=== PATIENT | male | born 2000 | race African-American/Black ===

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

== ENCOUNTER 2021-03-11 08:15 | Emergency (ER) | payer SELFPAY ==
--- NOTE | 2021-03-11 08:50 | EDM.PDOC ---
ED HPI GENERAL MEDICAL PROBLEM - General Chief Complaint: ENT Problem Stated Complaint: SORE THROAT AND FATIGUED Time Seen by Provider: 03/11/21 08:40 Source of Information: Reports: Patient, Old Records, RN History Limitations: Reports: No Limitations - History of Present Illness INITIAL COMMENTS - FREE TEXT/NARRATIVE: 20 yo male presents with a couple day duration of sore throat and cough. No fever. Does have some clear rhinorrhea. Cough is occasionally productive. No SOB. Onset: Gradual Onset Date: 03/09/21 Duration: Day(s): (2), Constant Location: Reports: Neck (throat), Chest Quality: Reports: Other (unsure) Severity: Moderate Improves with: Reports: Medication Worsens with: Reports: Other (cough, swallowing) Context: Reports: Other (See HPI) Associated Symptoms: Reports: Cough. Denies: Fever/Chills, Shortness of Breath Treatments AREA DEVELOPMENT CONSULTANT: Reports: Other (see below) (none) Throat Pain Score (Numeric/FACES): 7 - Related Data Allergies Allergy/AdvReac Type Severity Reaction Status Date / Time No Known Allergies Allergy Verified 03/11/21 08:37 Home Meds: Home Meds NK [No Known Home Meds] 03/11/21 [History] Social & Family History - Tobacco Use Tobacco Use Status *Q: Never Tobacco User - Caffeine Use Caffeine Use: Reports: None - Recreational Drug Use Recreational Drug Use: No ED ROS ENT - Review of Systems Review Of Systems: See Below Constitutional: Reports: Malaise. Denies: Fever, Chills HEENT: Reports: Rhinitis, Throat Pain Respiratory: Reports: Cough, Sputum (minimal). Denies: Shortness of Breath, Wheezing, Hemoptysis Cardiovascular: Reports: No Symptoms GI/Abdominal: Reports: No Symptoms : Reports: No Symptoms Musculoskeletal: Reports: No Symptoms Skin: Reports: No Symptoms Neurological: Reports: No Symptoms Psychiatric: Reports: No Symptoms ED EXAM, ENT - Physical Exam Exam: See Below Exam Limited By: No Limitations General Appearance: Alert, WD/WN, No Apparent Distress Eye Exam: Bilateral Eye: Normal Inspection Ears: Normal External Exam, Normal Canal, Hearing Grossly Normal, Normal TMs Nose: Normal Inspection, No Blood Mouth/Throat: Normal Inspection, Normal Lips, Normal Oropharynx Head: Atraumatic, Normocephalic Neck: Normal Inspection Respiratory/Chest: No Respiratory Distress, Lungs Clear, Normal Breath Sounds, No Accessory Muscle Use Cardiovascular: Regular Rate, Rhythm, No Edema Extremities: Normal Inspection Neurological: Alert, Oriented, CN II-XII Intact, Normal Cognition, No Motor/Sensory Deficits Psychiatric: Normal Affect, Normal Mood Skin: Warm, Dry, Intact, Normal Color, No Rash Course - Vital Signs Last Recorded V/S: Last Vital Signs Temp 36.7 C 03/11/21 09:14 Pulse 72 03/11/21 09:14 Resp 14 03/11/21 09:14 BP 130/91 H 03/11/21 09:14 Pulse Ox 98 03/11/21 09:14 - Orders/Labs/Meds Labs: Laboratory Tests 03/11/21 03/11/21 Range/Units 08:55 09:12 WBC 5.3 (4.5-11.0) K/uL RBC 6.13 H (4.30-5.90) M/uL Hgb 16.1 H (12.0-15.0) g/dL Hct 48.1 (40.0-54.0) % MCV 79 L (80-98) fL MCH 26 L (27-31) pg MCHC 34 (32-36) % Plt Count 180 (150-400) K/uL Neut % (Auto) 57.0 (36-66) % Lymph % (Auto) 21.0 L (24-44) % Evans % (Auto) 18.6 H (2-6) % Eos % (Auto) 3.2 (2-4) % Baso % (Auto) 0.2 (0-1) % SARS CoV-2 RNA Rapid PATSY Negative Departure - Departure Time of Disposition: 09:15 Disposition: Home, Self-Care 01 Condition: Fair Clinical Impression: Viral upper respiratory illness - Discharge Information *PRESCRIPTION DRUG MONITORING PROGRAM REVIEWED*: Not Applicable *COPY OF PRESCRIPTION DRUG MONITORING REPORT IN PATIENT EDUARDO: Not Applicable Referrals: PCP,Unknown [Primary Care Provider] - Forms: ED Department Discharge Additional Instructions: Take acetaminophen up to 1000 mg every 6 hrs as needed. Use Robitussin DM per package instructions for your cough symptom. Drink ample fluids. Isolate yourself to prevent spread. Recheck with your doctor as needed. Sepsis Event Note (ED) - Focused Exam Vital Signs: Vital Signs Temp Pulse Resp BP Pulse Ox 03/11/21 09:14 36.7 C 72 14 130/91 H 98 03/11/21 08:43 36.7 C 72 14 130/91 H 98
== END 2021-03-11 09:59 | disposition home or self-care (01) ==
LOC: JP.ED 08:15
DX: J06.9 Acute upper respiratory infection, unspecified (principal); Z20.822 Contact with and (suspected) exposure to COVID-19
CPT/HCPCS: 36415; 85025; 99283; U0002

== ENCOUNTER 2025-04-24 21:14 | Emergency (ER) | payer SELFPAY | END 2025-04-24 22:10 | disposition left against medical advice (07) | LOC: JP.ED 21:14 | DX: Z53.21 Procedure and treatment not carried out due to patient leaving prior to being seen by health care provider (principal) ==